=== PATIENT | male | born 1965 | race Caucasian/White ===

== ENCOUNTER 2022-03-16 09:30 | Outpatient (CLI) | payer BC, SELFPAY ==
[2022-03-16 21:56] LABS: Albumin* 4.6 g/dL (3.3-5.0); Chloride* 104 mmol/L (96-114)
[2022-03-16 21:57] LABS: Potassium* 4.3 mmol/L (3.6-5.1); Sodium* 138 mmol/L (135-149)
[2022-03-16 21:59] LABS: Bilirubin Total* 1.1 mg/dL (0.1-1.5); Carbon Dioxide* 25 mmol/L (20-32); Cholesterol* 221 mg/dL (90-199); Estimated Glomerular Filt Rate 88 ml/min
[2022-03-16 22:00] LABS: Alanine Aminotransferase* 25 U/L (4-50); Alkaline Phosphatase* 77 U/L (40-150); Aspartate Amino Transferase* 25 U/L (12-35); Blood Urea Nitrogen* 19 mg/dL (7-30); Calcium* 9.5 mg/dL (8.4-10.6); Glucose* 99 mg/dL (60-115); HDL Cholesterol* 48 mg/dL (>=40); LDL Cholesterol Calculated 133 mg/dL (<100); Total Protein* 7.6 g/dL (6.0-8.3); Triglycerides* 200 mg/dL (40-149)
[2022-03-16 22:26] LABS: Hepatitis B Surface Antigen* Negative (Negative)
[2022-03-16 22:30] LABS: PSA Screen* 0.32 ng/mL (0.10-4.00)
[2022-03-16 22:37] LABS: HIV 1/2/P24 Combo Screen* Negative (Negative)
[2022-03-16 22:43] LABS: Hepatitis C Virus Antibody* Negative (Negative)
[2022-03-16 23:32] LABS: Hepatitis B Surface Antibody* Negative (Negative)
[2022-03-19 01:23] LABS: Rapid Plasma Reagin (RPR) Non Reactive (Non Reactive)
== END 2022-03-16 09:31 | disposition home or self-care (01) ==
PROVIDERS: PCP Physician Assistant Medical; Visit Provider Physician Assistant Medical
DX: Z00.00 Encounter for general adult medical examination without abnormal findings (principal); Z12.5 Encounter for screening for malignant neoplasm of prostate; Z13.6 Encounter for screening for cardiovascular disorders; Z13.1 Encounter for screening for diabetes mellitus; Z11.3 Encounter for screening for infections with a predominantly sexual mode of transmission; Z13.29 Encounter for screening for other suspected endocrine disorder; Z13.0 Encounter for screening for diseases of the blood and blood-forming organs and certain disorders involving the immune mechanism; Z11.59 Encounter for screening for other viral diseases
CPT/HCPCS: 80053; 80061; 84153; 84443; 86592; 86703; 86706; 86803; 87340

== ENCOUNTER 2023-03-21 10:30 | Outpatient (CLI) | payer BC, SELFPAY | END 2023-03-21 10:31 | disposition home or self-care (01) | PROVIDERS: PCP Physician Assistant Medical; Visit Provider Physician Assistant Medical | DX: R68.82 Decreased libido (principal); Z13.220 Encounter for screening for lipoid disorders; Z11.3 Encounter for screening for infections with a predominantly sexual mode of transmission; Z13.228 Encounter for screening for other metabolic disorders | CPT/HCPCS: 80053; 80061; 86592; 86703; 86803; G0103 ==

== ENCOUNTER 2023-06-06 10:42 | Outpatient (CLI) | payer BC, SELFPAY ==
[2023-06-06 16:50] LABS: Chlamydia DNA Amplified* NOT DETECTED (No Detected); GC DNA Amplified* NOT DETECTED (No Detected)
== END 2023-06-06 10:43 | disposition home or self-care (01) ==
PROVIDERS: PCP Physician Assistant Medical; Visit Provider Physician Assistant Medical
DX: Z11.3 Encounter for screening for infections with a predominantly sexual mode of transmission (principal); Z13.220 Encounter for screening for lipoid disorders
CPT/HCPCS: 80061; 80076; 87491; 87591

== ENCOUNTER 2024-01-03 13:16 | Outpatient (CLI) | payer BC, SELFPAY | END 2024-01-03 13:17 | disposition home or self-care (01) | PROVIDERS: PCP Physician Assistant Medical; Visit Provider Physician Assistant Medical | DX: E78.5 Hyperlipidemia, unspecified (principal); Z12.5 Encounter for screening for malignant neoplasm of prostate; Z11.3 Encounter for screening for infections with a predominantly sexual mode of transmission; Z11.59 Encounter for screening for other viral diseases; Z11.4 Encounter for screening for human immunodeficiency virus [HIV] | CPT/HCPCS: 80053; 80061; 86592; 86703; 86803; G0103 ==